=== PATIENT | male | born 2000 | race Caucasian/White ===

== ENCOUNTER 2022-11-28 15:23 | Observation (INO) | payer BC, MEDICAID ==
[2022-11-28] MEDS ORDERED: Sodium Chloride 0.9% 1000 ML 1,000 ML IV STA ×2 (15:39→16:22)
[2022-11-28] MEDS ORDERED: Zofran 4 MG/2 ML VIAL IV ONE ×2 (15:39→18:10)
[2022-11-28] MEDS ORDERED: Sodium Chloride 0.9% 1000 ML 1,000 ML ONE ×2 (15:42→16:23)
[2022-11-28] MEDS ORDERED: Zofran 4 MG/2 ML VIAL ONE ×2 (15:42→18:11)
[2022-11-28 15:53] LABS: Absolute Neutrophil Ct (ANC) 13.11 x10^3/uL (1.4-6.9); BASOPHIL % 0.4 % (0.0-0.4); Basophil (Absolute #) 0.05 x10^3/uL (0-0.4); Eosinophil % 0.3 % (0.00-5.0); Eosinophil (Absolute #) 0.04 x10^3/uL (0-0.5); Hematocrit 52.6 % (42-50); Hemoglobin 18.6 g/dL (12.5-18.0); IMMATURE GRAN # 0.04 x10^3u/L (0.00-0.03); IMMATURE GRAN % 0.3 % (0.00-0.4); Lymphocyte (Absolute #) 0.31 x10^3/uL (1.0-4.6); Lymphocytes % 2.2 % (24.0-44.0); Mean Cell Volume 84.4 fL (78-100); Mean Corpuscular Hemoglobin 29.9 pg (26-32); Mean Corpuscular Hgb Concent. 35.4 g/dL (32-36); Mean Platelet Volume 10.1 fL (7.5-11.0); Monocyte (Absolute #) 0.37 x10^3/uL (0.0-1.3); Monocytes % 2.7 % (0.0-12.0); Neutrophil % 94.1 % (36.0-66.0); Platelet Count 265 x10^3/uL (150-450); Red Blood Count 6.23 x10^6/uL (4.1-5.6); Red Cell Distribution Width 12.9 % (11.5-14.0); White Blood Count 13.9 x10^3/uL (4.0-10.5)
[2022-11-28 16:05] LABS: ALKALINE PHOSPHATASE 77 U/L (38-126); ANION GAP 21.3 MEQ/L (5-15); BLOOD UREA NITROGEN 24 mg/dL (9-20); CHLORIDE 104 mmol/L (98-107); Calcium 9.2 mg/dL (8.4-10.2); Carbon Dioxide 19 mmol/L (22-30); Creatinine 1 0.74 mg/dL (0.66-1.25); EST GLOMERULAR FILTRATION RATE > 60.0 ML/MIN; Glucose 136 mg/dL (74-106); LIPASE 43 U/L (23-300); Potassium 4.3 mmol/L (3.5-5.1); SGOT/AST 22 U/L (17-59); SGPT/ALT 27 U/L (0-50); SODIUM 140 mmol/L (137-145); Total Protein 9.1 g/dL (6.3-8.2)
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
[2022-11-28] MEDS ORDERED: Levofloxacin 500MG/100ML D5W 500 MG/100 ML BAG IV STA (16:30)
[2022-11-28] MEDS ORDERED: FLAGYL 500 MG IVPB 500 MG/100 ML BAG IV STA (16:31)
[2022-11-28] MEDS ORDERED: Levofloxacin 500MG/100ML D5W 500 MG/100 ML BAG IV ONE (16:36)
[2022-11-28] MEDS ORDERED: FLAGYL 500 MG IVPB 500 MG/100 ML BAG IV ONE (17:08)
[2022-11-28 17:40] LABS: ADD URINE CULTURE? NO (NO); Appearance Clear (Clear); Bacteria None Seen /HPF (None Seen); Bilirubin Negative (Negative); Blood Negative (Negative); Epithelial Cells None Seen /HPF (None Seen); Glucose, Urine Negative (Negative); Hyaline Casts NONE SEEN /LPF (0-2); Ketones Negative (Negative); Leukocyte Esterase Negative (Negative); Nitrite Negative (Negative); Protein,Urine Dip Negative (Negative); RBC 0-2 /HPF (0-5); Specific Gravity >=1.030 (1.005-1.030); Urobilinogen 0.2 mg/dL (0.2); WBC 0-2 /HPF (0-5)
[2022-11-28 18:02] LABS: Amphetamine,Urine NEGATIVE (NEGATIVE); Barbiturate,Urine NEGATIVE (NEGATIVE); Benzodiazepine,Urine NEGATIVE (NEGATIVE); Cocaine,Urine NEGATIVE (NEGATIVE); Methadone,Urine NEGATIVE (NEGATIVE); Opiate,Urine NEGATIVE (NEGATIVE); PCP,Urine NEGATIVE (NEGATIVE); THC,Urine NEGATIVE (NEGATIVE)
[2022-11-28] MEDS ORDERED: TYLENOL EXTRA STRENGTH 500 MG PO PRN (18:59)
[2022-11-28] MEDS ORDERED: TYLENOL EXTRA STRENGTH 500 MG ONE (19:00)
[2022-11-28] MEDS: Lactated Ringers 1,000 ML IV SCH (19:39)
[2022-11-28 19:57] LABS: INFLUENZA A NEGATIVE (NEGATIVE); INFLUENZA B NEGATIVE (NEGATIVE); RESPIRATORY SYNCTIAL VIRUS NEGATIVE (NEGATIVE); SARS-CoV-2 Xpert Express NEGATIVE (NEGATIVE)
[2022-11-28] MEDS ORDERED: TYLENOL 325 MG PO PRN (20:10)
[2022-11-28] MEDS ORDERED: Zofran 4 MG/2 ML VIAL IV PRN (20:10)
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
[2022-11-29] MEDS: FLAGYL 500 MG IVPB 500 MG/100 ML BAG IV SCH ×2 (00:25→05:45)
[2022-11-29] MEDS: Lactated Ringers 1,000 ML IV SCH ×2 (01:27→06:58)
[2022-11-29 05:05] LABS: BASOPHIL % 0.4 % (0.0-0.4); Basophil (Absolute #) 0.02 x10^3/uL (0-0.4); Eosinophil (Absolute #) 0 x10^3/uL (0-0.5); Hematocrit 41.4 % (42-50); Hemoglobin 14.7 g/dL (12.5-18.0); IMMATURE GRAN # 0.01 x10^3u/L (0.00-0.03); IMMATURE GRAN % 0.2 % (0.00-0.4); Lymphocyte (Absolute #) 0.58 x10^3/uL (1.0-4.6); Lymphocytes % 10.8 % (24.0-44.0); Mean Cell Volume 83.5 fL (78-100); Mean Corpuscular Hemoglobin 29.6 pg (26-32); Mean Corpuscular Hgb Concent. 35.5 g/dL (32-36); Mean Platelet Volume 9.9 fL (7.5-11.0); Monocyte (Absolute #) 0.35 x10^3/uL (0.0-1.3); Monocytes % 6.5 % (0.0-12.0); Neutrophil % 82.1 % (36.0-66.0); Platelet Count 171 x10^3/uL (150-450); Red Blood Count 4.96 x10^6/uL (4.1-5.6); Red Cell Distribution Width 12.9 % (11.5-14.0); White Blood Count 5.4 x10^3/uL (4.0-10.5)
[2022-11-29 05:35] LABS: ALBUMIN 3.7 g/dL (3.5-5.0); ALKALINE PHOSPHATASE 49 U/L (38-126); ANION GAP 12.3 MEQ/L (5-15); BLOOD UREA NITROGEN 12 mg/dL (9-20); CHLORIDE 101 mmol/L (98-107); Calcium 8.1 mg/dL (8.4-10.2); Carbon Dioxide 25 mmol/L (22-30); Creatinine 1 0.65 mg/dL (0.66-1.25); EST GLOMERULAR FILTRATION RATE > 60.0 ML/MIN; Glucose 107 mg/dL (74-106); Potassium 3.4 mmol/L (3.5-5.1); SGOT/AST 18 U/L (17-59); SGPT/ALT 20 U/L (0-50); SODIUM 135 mmol/L (137-145); Total Protein 6.6 g/dL (6.3-8.2)
[2022-11-29 06:48] LABS: Slide Review 1 YES
[2022-11-29 07:22] VITALS: BP 119/86; PULSE 98; O2SAT 97
[2022-11-29] MEDS ORDERED: Levofloxacin 500MG/100ML D5W 500 MG/100 ML BAG IV SCH (10:00)
--- NOTE | 2022-12-02 09:35 | XRAY ---
Indication: Abdomen pain. Multiple contiguous axial images obtained through the abdomen and pelvis using 80 cc Isovue 370 contrast. Comparison: None Lung bases clear. Heart not enlarged. Noncontrasted stomach and bowel loops are nonobstructed. Several jejunal bowel loops are mildly fluid distended with wall thickening/enhancement favoring enteritis. Normal appendix. Mild diffuse colonic diarrhea. No free fluid/air. Spleen is enlarged measuring 14.8 cm. Remaining liver, gallbladder, pancreas, spleen, adrenal glands, kidneys, ureters, bladder, and aorta are unremarkable. No pathologic retroperitoneal lymphadenopathy. Osseous structures intact. Impression: CT findings as detailed favoring enteritis with colonic diarrhea. Incidental splenomegaly.
== END 2022-11-29 10:07 | disposition home or self-care (01) ==
LOC: ED 15:23 → MED SURG 20:02
PROVIDERS: ADMIT Internal Medicine Critical Care Medicine; ATTEND Family Medicine
DX: D72.829 Elevated white blood cell count, unspecified (principal); K52.9 Noninfective gastroenteritis and colitis, unspecified; E86.0 Dehydration; E87.20 Acidosis, unspecified; R00.0 Tachycardia, unspecified; Z20.828 Contact with and (suspected) exposure to other viral communicable diseases; Z72.0 Tobacco use
CPT/HCPCS: 0241U; 36000; 36415; 74177; 80053; 80307; 81001; 83605; 83690; 85025; 87045; 87046; 93005; 93041; 93268; 96360; 96361; 96365; 96367; 96374; 96376; 99285; G0378; J1956; J2405; A9270-GY